=== PATIENT | female | born 1990 | race Two or more races ===

== ENCOUNTER 2018-11-02 07:07 | Emergency (ER) | payer SELFPAY ==
[~2018-11-02] VITALS: Ht 154.9 cm; Wt 54.4 kg
[2018-11-02 07:31] VITALS: BP 128/74
[2018-11-02] MEDS ORDERED: HYDROcodone/APAP 5/325MG 1 TAB TABLET PO ONE (08:00)
[2018-11-02] MEDS ORDERED: PRED-220 PO (08:07)
[2018-11-02] MEDS ORDERED: TRIA15CR3 TP (08:07)
[2018-11-02] MEDS ORDERED: HYDR-3164 PO (08:07)
[2018-11-02] MEDS ORDERED: CLIN300C8 PO (08:07)
--- NOTE | 2018-11-02 08:24 | PHYS DOC ---
Past Medical History Past Medical History: Migraines, Other Additional Past Medical Histor: eczema Past Surgical History: No Surgical History Additional Information: 11/09 ppd Alcohol Use: Heavy Additional Information: wine daily Drug Use: Marijuana Adult General Chief Complaint Chief Complaint: HAND PROBLEM HPI HPI Patient is a 28 year old female presents with severe rash to her hands and also on her buttocks she's been dealing with this for several months however it seemed to get much worse over the last couple weeks. She has been treated for eczema she does have chronic eczema on her hands however these lesions are getting worse there blistering there is increased pain there is no fever she has not had any of the cream that she normally tries she has just used over-the- counter antibiotic cream with no relief the pain is sharp severe radiates diffusely no lesions on the genital she says Review of Systems Review of Systems Constitutional: Denies fever or chills [] Eyes: Denies change in visual acuity, redness, or eye pain [] HENT: Denies nasal congestion or sore throat [] Integument Neurologic: Denies headache, focal weakness or sensory changes [] All other systems were reviewed and found to be within normal limits, except as documented in this note. Current Medications Current Medications Current Medications Medications (Trade) Dose Ordered Sig/Sintia Start Time Stop Time Status Last Admin Dose Admin Acetaminophen/ Hydrocodone Bitart (Lortab 5/325) 2 tab 1X ONCE 11/02/18 08:00 11/02/18 08:01 DC 11/02/18 08:06 2 TAB Clindamycin HCl (Cleocin) 300 mg 1X ONCE 11/02/18 09:15 11/02/18 09:16 DC 11/02/18 09:18 300 MG Prednisone (Prednisone) 50 mg 1X ONCE 11/02/18 09:15 11/02/18 09:16 DC 11/02/18 09:19 50 MG Allergies Allergies Allergies Coded Allergies Type Severity Reaction Last Updated Verified No Known Drug Allergies 11/02/18 No Physical Exam Physical Exam Constitutional: Well developed, well nourished, no acute distress, non-toxic appearance. [] HENT: Normocephalic, atraumatic, bilateral external ears normal, oropharynx moist, no oral exudates, nose normal. [] Eyes: PERRLA, EOMI, conjunctiva normal, no discharge. [] Neck: Normal range of motion, no tenderness, supple, no stridor. [] Pulmonary: Normal respiratory effort no increased work of breathing no obvious chest wall trauma Abdomen: Bowel sounds normal, soft, no tenderness, no masses, no pulsatile masses. [] Skin there is a scaly erythematous tender hypertrophic rash noted to bilateral hands as well as an area on the left ring finger with some focal erythema and induration no definite fluctuance. There are also scattered healed follicular lesions on the buttocks examined with Keri nurse present Well-healed cutting lesions noted over the bilateral forearms Extremities: Tenderness at the area the rash as noted above Neurologic: Alert and oriented X 3, normal motor function, normal sensory function, no focal deficits noted. [] Psychologic: Affect normal, judgement normal, mood anxiety noted patient states that she is not suicidal she did some cutting but that was back in high school not in a long long time. Current Patient Data Vital Signs Vital Signs Date Time Temp Pulse Resp B/P (MAP) Pulse Ox O2 Delivery O2 Flow Rate FiO2 11/02/18 08:06 20 Room Air 11/02/18 07:31 97.9 71 128/74 (92) 100 97.9 Lab Values Laboratory Tests Test 11/02/18 08:15 White Blood Count 13.8 x10^3/uL (4.0-11.0) H Red Blood Count 3.82 x10^6/uL (3.50-5.40) Hemoglobin 13.2 g/dL (12.0-15.5) Hematocrit 38.0 % (36.0-47.0) Mean Corpuscular Volume 100 fL (79-100) Mean Corpuscular Hemoglobin 35 pg (25-35) Mean Corpuscular Hemoglobin Concent 35 g/dL (31-37) Red Cell Distribution Width 13.9 % (11.5-14.5) Platelet Count 213 x10^3/uL (140-400) Neutrophils (%) (Auto) 79 % (31-73) H Lymphocytes (%) (Auto) 15 % (24-48) L Monocytes (%) (Auto) 5 % (0-9) Eosinophils (%) (Auto) 1 % (0-3) Basophils (%) (Auto) 0 % (0-3) Neutrophils # (Auto) 10.8 x10^3uL (1.8-7.7) H Lymphocytes # (Auto) 2.1 x10^3/uL (1.0-4.8) Monocytes # (Auto) 0.7 x10^3/uL (0.0-1.1) Eosinophils # (Auto) 0.2 x10^3/uL (0.0-0.7) Basophils # (Auto) 0.0 x10^3/uL (0.0-0.2) Maternal Serum HCG Beta Subunit < 1 mIU/mL (0-5) Sodium Level 140 mmol/L (136-145) Potassium Level 3.1 mmol/L (3.5-5.1) L Chloride Level 102 mmol/L (98-107) Carbon Dioxide Level 24 mmol/L (21-32) Anion Gap 14 (6-14) Blood Urea Nitrogen 7 mg/dL (7-20) Creatinine 0.8 mg/dL (0.6-1.0) Estimated GFR (Cockcroft-Gault) 86.7 BUN/Creatinine Ratio 9 (6-20) Glucose Level 111 mg/dL (70-99) H Calcium Level 9.3 mg/dL (8.5-10.1) Total Bilirubin 0.4 mg/dL (0.2-1.0) Aspartate Amino Transferase (AST) 18 U/L (15-37) Alanine Aminotransferase (ALT) 23 U/L (14-59) Alkaline Phosphatase 67 U/L (46-116) Total Protein 7.6 g/dL (6.4-8.2) Albumin 3.8 g/dL (3.4-5.0) Albumin/Globulin Ratio 1.0 (1.0-1.7) Laboratory Tests 11/02/18 08:15 Laboratory Tests 11/02/18 08:15 EKG EKG [] Radiology/Procedures Radiology/Procedures [] Course & Med Decision Making Course & Med Decision Making Pertinent Labs and Imaging studies reviewed. (See chart for details) []Nursing staff asked patient in private about domestic balance and she denied Likely severe eczema with possible superinfection noted to the left and possibly even on the fourth finger some localized cellulitis however I think that symptoms are acute and chronic I think that we should give prednisone triamcinolone clindamycin pain control we checked basic lab work in the emergency room she was advised to come back as needed if she is not improved. Follow-up with primary care doctor as well as dermatology she has seen dermatology for this in the past. Paty Disclaimer Paty Disclaimer This electronic medical record was generated, in whole or in part, using a voice recognition dictation system. Departure Departure Impression: Primary Impression: Eczema Additional Impression: Cellulitis Disposition: 01 HOME, SELF-CARE Condition: STABLE Referrals: NO PCP (PCP) Patient Instructions: Eczema Scripts Hydrocortisone (HYDROCORTISONE) 453.6 Gm Cream..g. 1 RUBÉN TP BID, #15 EACH Prov: TEREZA KAPOOR MD 11/02/18 Triamcinolone Acetonide (TRIAMCINOLONE ACETONIDE 0.1% CREAM) 15 Gm Cream..g. 1 RUBÉN TP BID, #1 TUBE Prov: TEREZA KAPOOR MD 11/02/18 Clindamycin Hcl (CLINDAMYCIN HCL) 300 Mg Capsule 1 CAP PO TID, #21 CAP Prov: TEREZA KAPOOR MD 11/02/18 Prednisone (PREDNISONE ) 10 Mg Tablet 10 MG PO UD for PREDNISONE TAPER, #39 TAB 0 Refills Take 3 tablets by mouth twice a day for 3 days, then take 2 tablets by mouth twice a day for 3 days, then take 1 tablet by mouth twice a day for 3 days, then take 1 tablet by mouth daily x 3 days, then stop. Prov: TEREZA KAPOOR MD 11/02/18 Hydrocodone/Apap 5-325 (NORCO 5-325 TABLET) 1 Each Tablet 1-2 EACH PO PRN Q6HRS PRN for PAIN, #15 as needed for pain Prov: TEREZA KAPOOR MD 11/02/18 Problem Qualifiers TEREZA KAPOOR MD Nov 02, 2018 08:24
[2018-11-02 08:27] LABS: BASO % 0 % (0-3); EOS # 0.2 x10^3/uL (0.0-0.7); EOS % 1 % (0-3); HEMOGLOBIN 13.2 g/dL (12.0-15.5); LYMPH # 2.1 x10^3/uL (1.0-4.8); LYMPH % 15 % (24-48); MEAN CORPUSCULAR HEMOGLOBIN 35 pg (25-35); MEAN CORPUSCULAR HGB CONC 35 g/dL (31-37); MEAN CORPUSCULAR VOLUME 100 fL (79-100); MONO # 0.7 x10^3/uL (0.0-1.1); MONO % 5 % (0-9); NEUT # 10.8 x10^3uL (1.8-7.7); NEUT % 79 % (31-73); PLATELET COUNT 213 x10^3/uL (140-400); RED BLOOD COUNT 3.82 x10^6/uL (3.50-5.40); RED CELL DISTRIBUTION WIDTH 13.9 % (11.5-14.5); WHITE BLOOD COUNT 13.8 x10^3/uL (4.0-11.0)
[2018-11-02 08:38] LABS: CALCIUM 9.3 mg/dL (8.5-10.1); CREATININE 0.8 mg/dL (0.6-1.0); GFR 86.7; POTASSIUM 3.1 mmol/L (3.5-5.1)
[2018-11-02 08:44] LABS: ALBUMIN 3.8 g/dL (3.4-5.0); TOTAL BILIRUBIN 0.4 mg/dL (0.2-1.0); TOTAL PROTEIN 7.6 g/dL (6.4-8.2)
[2018-11-02] MEDS ORDERED: HYDR453. TP (09:04)
[2018-11-02] MEDS ORDERED: predniSONE 10 MG TABLET PO ONE (09:15)
[2018-11-02] MEDS ORDERED: CLINDAMYCIN HCL 150 MG CAPSULE. PO ONE (09:15)
== END 2018-11-02 09:35 | disposition home or self-care (01) ==
LOC: ER 07:07
DX: L03.114 Cellulitis of left upper limb (principal); L03.113 Cellulitis of right upper limb
CPT/HCPCS: 36415; 80053; 84702; 85025; 99284; J7512

== ENCOUNTER 2020-06-05 16:20 | Observation (INO) | payer OTHER ==
[~2020-06-05 16:20] MED LIST: CLIN300C8 PO; HYDR-3164 PO; HYDR453. TP; PRED-220 PO; TRIA15CR3 TP
[2020-06-05] MEDS ORDERED: IV RINGERS,LACTATED 1000ML 1,000 ML IV PRN (17:00)
[2020-06-05 17:10] LABS: AMNIO PT POSITIVE
[2020-06-05 17:10] LABS: BILIRUBIN,URINE NEGATIVE (NEG); CLARITY,URINE CLEAR; COLOR,URINE YELLOW; NITRITE,URINE NEGATIVE (NEG); PROTEIN,URINE NEGATIVE (NEG-TRACE)
[2020-06-05] MEDS ORDERED: AMPICILLIN SODIUM 2 GM in IV NORMAL SALINE 100ML 100 ML IV ONE (17:15)
[2020-06-05] MEDS ORDERED: BETAMET ACET&NA PHOS 30 MG/5 ML VIAL. IM ONE (17:15)
[2020-06-05 17:16] LABS: SQUAMOUS EPITHELIAL CELL,UR MOD /LPF
[2020-06-05 17:17] LABS: AMORPHOUS SEDIMENT,UR PRESENT /HPF; BACTERIA,URINE MODERATE /HPF (0-FEW)
[2020-06-05 17:19] LABS: BARBITURATES NEG (NEG); BENZODIAZEPINES NEG (NEG); CANNABINOIDS POS (NEG); COCAINE NEG (NEG); METHADONE NEG (NEG); OPIATES NEG (NEG); PHENCYCLIDINE NEG (NEG)
[2020-06-05 17:21] LABS: AMPHETAMINE/METHAMPHETAMINE NEG (NEG)
== END 2020-06-05 18:15 | disposition home or self-care (01) ==
LOC: 3 SO LND 16:20
PROVIDERS: ADMIT Obstetrics & Gynecology; ATTEND Obstetrics & Gynecology
DX: O42.912 Preterm premature rupture of membranes, unspecified as to length of time between rupture and onset of labor, second trimester (principal); R10.9 Unspecified abdominal pain; Z3A.24 24 weeks gestation of pregnancy
CPT/HCPCS: 36415; 80307; 81001; 84112; 87086; G0378; G0379; J0290; J0702; J7120; 96365; 96372